=== PATIENT | female | born 1980 | race Caucasian/White ===

== ENCOUNTER 2017-05-28 08:59 | Outpatient (CLI) | payer OTHER ==
--- NOTE | 2017-05-28 14:27 | Diagnostic Imaging Report ---
KEDNRA GOYAL [facility] [address] [facility].[address] [address] Report Submission Date: May 28, 2017 10:40:11 AM CDT Patient Study Name: OLIVER ACEVEDO Date: May 28, 2017 9:13:22 AM CDT Modality Type: US Gender: F Description: TRANSVAGINAL PELVIS : 82 Institution: [facility] Physician: KENDRA GOYAL Examination: Ultrasound pelvis History: Right pelvic discomfort Comparison exams: None available Findings: Sonographic evaluation of the pelvis demonstrates uterus measuring 9.4 x 5.1 x 5.0 cm. Uterus retroflexed. Myometrium without gross regularity. Endometrial complex measures 15.8 mm. Mildly prominent pelvic vasculature. Right ovary measures 3.5 x 1.7 x 1.2 cm. Left ovary measures 3.1 x 2.0 x 2.4 cm. Normal flow on Doppler analysis. Follicles bilaterally. Involuting left cyst. Impression: No evidence for pelvic mass or lesion. No myometrial abnormality. Ovarian follicles. No torsion. Prominent endometrium. Correlate with menstrual cycle. Electronically signed on May 28, 2017 10:40:11 AM CDT by: Russ RANGEL
== END 2017-05-28 09:00 ==
LOC: RAD 08:59
PROVIDERS: ATTEND Family Medicine
DX: R10.31 Right lower quadrant pain (principal)
CPT/HCPCS: 76830